=== PATIENT | male | born 1995 | race Hispanic/Latino ===

== ENCOUNTER 2017-03-10 20:47 | Emergency (ER) | payer MEDICAID ==
--- NOTE | 2017-03-10 21:41 | RAD ---
CHEST TWO VIEWS: 03/10/17 HISTORY: Cold symptoms, cough, yellow sputum x6 days. Heart size and mediastinum are within normal limits. The lungs are clear of infiltrates. No signific ant bony findings. IMPRESSION: No active intrathoracic disease. POS: [facility]
== END 2017-03-10 22:35 | disposition left against medical advice (07) ==
LOC: ERS 20:47
DX: Z53.21 Procedure and treatment not carried out due to patient leaving prior to being seen by health care provider (principal)
CPT/HCPCS: 71020

== ENCOUNTER 2017-08-22 20:50 | Emergency (ER) | payer MEDICAID, SELFPAY | END 2017-08-22 21:19 | disposition home or self-care (01) | LOC: ERS 20:50 | DX: T63.301A Toxic effect of unspecified spider venom, accidental (unintentional), initial encounter (principal); L03.113 Cellulitis of right upper limb; I10 Essential (primary) hypertension; J45.909 Unspecified asthma, uncomplicated; G89.29 Other chronic pain | CPT/HCPCS: 99282 ==

== ENCOUNTER 2018-01-15 00:42 | Emergency (ER) | payer SELFPAY ==
--- NOTE | 2018-01-15 09:00 | RAD ---
RIGHT KNEE 4 VIEWS: Date: 01/15/18 HISTORY: Injury, slipped on a wet surface. COMPARISON: None. FINDINGS: Mild soft tissue swelling. No acute displaced fracture or malalignment. No significant joint effusion. IMPRESSION: No acute displaced fracture or malalignment. Soft tissue swelling, likely sequelae of contusion. POS: [facility]
== END 2018-01-15 02:08 | disposition home or self-care (01) ==
LOC: ERS 00:42
DX: S83.91XA Sprain of unspecified site of right knee, initial encounter (principal); J45.909 Unspecified asthma, uncomplicated; I10 Essential (primary) hypertension; W01.0XXA Fall on same level from slipping, tripping and stumbling without subsequent striking against object, initial encounter